=== PATIENT | male | born 1995 | race Caucasian/White ===

== ENCOUNTER 2023-05-10 19:36 | Emergency (ER) | payer OTHER ==
[~2023-05-10] VITALS: Ht 177.8 cm; Wt 81.7 kg
[~2023-05-10 19:36] MED LIST: CEPH500 PO
== END 2023-05-10 22:48 | disposition home or self-care (01) ==
LOC: ER 19:36
DX: M25.512 Pain in left shoulder (principal); W17.89XA Other fall from one level to another, initial encounter; Y93.61 Activity, american tackle football
CPT/HCPCS: 73030; 96372; 99283-25; A9270; J1885